=== PATIENT | male | born 1955 | race Caucasian/White ===

== ENCOUNTER 2019-03-28 21:26 | Emergency (ER) | payer BC ==
[~2019-03-28] VITALS: Ht 175.3 cm; Wt 82.6 kg
[2019-03-28] MEDS ORDERED: DOXYCYCLINE HY100 MG PO (22:32)
== END 2019-03-28 22:49 | disposition home or self-care (01) ==
LOC: ED 21:26
DX: S61.212A Laceration without foreign body of right middle finger without damage to nail, initial encounter (principal); W26.0XXA Contact with knife, initial encounter
CPT/HCPCS: 12002; 90471; 90715; 99282-25